=== PATIENT | female | born 1995 | race Caucasian/White ===

== ENCOUNTER 2017-08-25 01:53 | Emergency (ER) | payer OTHER ==
[2017-08-25] MEDS ORDERED: IBUPROFEN 400 MG TAB PO STA (02:34)
--- NOTE | 2017-08-25 02:42 | ED ---
Psych HPI - General Chief Complaint: Psychiatric Symptoms Stated Complaint: mental health Time Seen by Provider: 08/25/17 02:09 Source: patient, family, police Mode of arrival: ambulatory - History of Present Illness Initial Comments: This patient is a 21 year old woman brought in after she threatened suicide at her home tonight. The patient had apparently had some behavioral episodes over the course the past few days. Tonight she requested her phone and when this was not given to her she attempted to break into the medicine container. When she was stopped from this she pulled the cabinet over on top of herself. She also made statements that she is going to kill herself and/or all of the staff at the home. They bring her tonight to be evaluated. MD Complaint: suicidal ideation -: hour(s) Associated Psychiatric Symptoms: suicidal ideation History of same: Yes Improves With: none Worsens With: none Associated Symptoms: denies other symptoms - Related Data Home Medications Medication Instructions Recorded Confirmed ARIPiprazole 2 mg PO DAILY 08/25/17 08/25/17 Cholecalciferol (Vitamin D3) 2,000 unit PO DAILY 08/25/17 08/25/17 [Vitamin D3] Docusate [Colace] 100 mg PO DAILY 08/25/17 08/25/17 FLUoxetine HCL [PROzac] 10 mg PO DAILY 08/25/17 08/25/17 Fluticasone Nasal [place] [Flonase 2 spr EA NOSTRIL DAILY 08/25/17 08/25/17 Nasal [place]] Ibuprofen [Motrin] 800 mg PO BID 08/25/17 08/25/17 Lactase [Lactaid] 3,000 unit PO DAILY 08/25/17 08/25/17 Lisdexamfetamine Dimesylate 40 mg PO QAM 08/25/17 08/25/17 [Vyvanse] Omeprazole [PriLOSEC] 20 mg PO AC-BID 08/25/17 08/25/17 Ziprasidone [Geodon] 40 mg PO BID 08/25/17 08/25/17 guanFACINE HCL [guanFACINE HCL ER] 2 mg PO BID 08/25/17 08/25/17 hydrOXYzine PAMOATE [Vistaril] 25 mg PO TID PRN 08/25/17 08/25/17 Allergies Allergy/AdvReac Type Severity Reaction Status Date / Time diphenhydramine Allergy Rapid Verified 08/25/17 02:01 [From Benadryl] Heart Rate Review of Systems ROS Statement: Those systems with pertinent positive or pertinent negative responses have been documented in the HPI. ROS Other: All systems not noted in ROS Statement are negative. Respiratory: Denies: cough, dyspnea Cardiovascular: Denies: chest pain Gastrointestinal: Denies: abdominal pain, vomiting Skin: Denies: rash Neurological: Denies: headache Past Medical History Additional Past Medical History / Comment(s): ADHD, depression History of Any Multi-Drug Resistant Organisms: None Reported Past Surgical History: No Surgical Hx Reported Past Psychological History: ADD/ADHD, Anxiety, Depression Smoking Status: Never smoker Past Alcohol Use History: None Reported Past Drug Use History: None Reported General Exam Limitations: no limitations General appearance: alert, in no apparent distress Head exam: Present: atraumatic, normocephalic Eye exam: Present: normal appearance. Absent: scleral icterus, conjunctival injection ENT exam: Present: normal oropharynx Neck exam: Present: normal inspection, full ROM Respiratory exam: Present: normal lung sounds bilaterally. Absent: respiratory distress, wheezes, rales, rhonchi, stridor Cardiovascular Exam: Present: regular rate, normal rhythm, normal heart sounds. Absent: systolic murmur, diastolic murmur, rubs, gallop GI/Abdominal exam: Present: soft. Absent: distended, tenderness, guarding, rebound, mass Extremities exam: Present: normal inspection, normal capillary refill. Absent: pedal edema, calf tenderness Back exam: Present: normal inspection. Absent: CVA tenderness (R), CVA tenderness (L), vertebral tenderness Neurological exam: Present: alert Psychiatric exam: Present: normal affect. Absent: manic, homicidal ideation, suicidal ideation Skin exam: Present: warm, dry, intact, normal color. Absent: rash Course Vital Signs 08/25/17 01:57 Temperature 97.4 F L Pulse Rate 80 Respiratory 16 Rate Blood Pressure 125/69 O2 Sat by Pulse 98 Oximetry Medical Decision Making - Lab Data Lab Results 08/25/17 Range/Units 03:00 Urine Opiates Screen Not Detected (NotDetected) Ur Oxycodone Screen Not Detected (NotDetected) Urine Methadone Screen Not Detected (NotDetected) Ur Propoxyphene Screen Not Detected (NotDetected) Ur Barbiturates Screen Not Detected (NotDetected) U Tricyclic Antidepress Not Detected (NotDetected) Ur Phencyclidine Scrn Not Detected (NotDetected) Ur Amphetamines Screen Detected H (NotDetected) U Methamphetamines Scrn Not Detected (NotDetected) U Benzodiazepines Scrn Not Detected (NotDetected) Urine Cocaine Screen Not Detected (NotDetected) U Marijuana (THC) Screen Not Detected (NotDetected) Disposition Clinical Impression: Adjustment reaction Disposition: HOME SELF-CARE Condition: Fair Instructions: Mood Disorders (ED) Referrals: Michael Reddy DO [Primary Care Provider] - 1-2 days
[2017-08-25 04:47] VITALS: BP 148/72; PULSE 92; RESP 18; TEMP 98.6
== END 2017-08-25 04:45 | disposition home or self-care (01) ==
LOC: EEVIPCON 01:53 → EC 01:53 → SUPCPDRO 01:53 → EC 04:45
DX: F43.20 Adjustment disorder, unspecified (principal); F90.9 Attention-deficit hyperactivity disorder, unspecified type; F32.9 Major depressive disorder, single episode, unspecified; F41.9 Anxiety disorder, unspecified; Z79.51 Long term (current) use of inhaled steroids; Z79.1 Long term (current) use of non-steroidal anti-inflammatories (NSAID); Z79.899 Other long term (current) drug therapy; Z88.8 Allergy status to other drugs, medicaments and biological substances
CPT/HCPCS: 80306; 82075; 99284

== ENCOUNTER 2021-02-15 23:02 | Emergency (ER) | payer OTHER ==
[2021-02-16 07:23] LABS: Amphetamine Screen,Urine Not Detected (NotDetected); Barbiturate Screen,Urine Not Detected (NotDetected); Benzodiazepines Screen,Urine Not Detected (NotDetected); Cocaine Screen,Urine Not Detected (NotDetected); Methadone Screen, Urine Not Detected (NotDetected); Opiate Screen,Urine Not Detected (NotDetected); Oxycodone Screen, Urine Not Detected (NotDetected); Phencyclidine Screen,Urine Not Detected (NotDetected); Tricyclic Antidepressant,Urine Not Detected (NotDetected); Urn Cannabinoid Scrn Not Detected (NotDetected)
[2021-02-16 08:05] LABS: African American GFR (CKD) >90 (>60 ml/min/1.73 sqM); Alcohol <10 mg/dL; Anion Gap 6 mmol/L; Blood Urea Nitrogen 14 mg/dL (7-17); Calcium 9.5 mg/dL (8.4-10.2); Carbon Dioxide 25 mmol/L (22-30); Chloride 104 mmol/L (98-107); Glucose 99 mg/dL (74-99); Non-African American GFR(CKD) >90 (>60 ml/min/1.73 sqM); Potassium 4.2 mmol/L (3.5-5.1); Sodium 135 mmol/L (137-145)
[2021-02-16 08:20] LABS: Basophils # (A) 0.1 k/uL (0-0.2); Basophils % (A) 0 %; Eosinophils # (A) 0.1 k/uL (0-0.7); Eosinophils % (A) 1 %; HGB 13.5 gm/dL (11.4-16.0); Lymphocytes # (A) 2.3 k/uL (1.0-4.8); Lymphocytes % (A) 20 %; MCH 30.9 pg (25.0-35.0); MCHC 34.6 g/dL (31.0-37.0); MCV 89.4 fL (80.0-100.0); Mean Platelet Volume 6.6; Monocytes # (A) 0.4 k/uL (0-1.0); Monocytes % (A) 3 %; Neutrophils # (A) 8.4 k/uL (1.3-7.7); Neutrophils % (A) 74 %; Platelet Count 422 k/uL (150-450); RBC 4.37 m/uL (3.80-5.40); RDW 12.7 % (11.5-15.5); WBC 11.4 k/uL (3.8-10.6)
== END 2021-02-16 02:10 | disposition home or self-care (01) ==
LOC: EC 23:02
DX: F43.20 Adjustment disorder, unspecified (principal); F32.9 Major depressive disorder, single episode, unspecified
CPT/HCPCS: 99284 ×2; 36415; 80048; 85025; 81025; 80306; G0480; 80320

== ENCOUNTER 2021-02-25 19:55 | Emergency (ER) | payer OTHER ==
[2021-02-25 20:08] VITALS: RESP 18; TEMP 98.3
--- NOTE | 2021-02-25 20:23 | ED ---
General Adult HPI - General Source: patient, EMS, RN notes reviewed, old records reviewed Mode of arrival: EMS Limitations: altered mental status <Cj Khalil - Last Filed: 02/25/21 20:21> <Ludin Lee - Last Filed: 02/25/21 23:05> - General Chief complaint: Psychiatric Symptoms Stated complaint: mental health Time Seen by Provider: 02/25/21 20:08 - History of Present Illness Initial comments: 25-year-old female presenting for mental health evaluation. Patient reportedly had hallucination, stated she saw her grandfather. There was no reported choking episode where the patient attempt to hurt herself. Patient states she did see her grandfather who is [facility]. She denies any suicidal ideation. She states she doesn't remember choking herself. She currently resides [place] [facility]. Denies illicit drugs, denies alcohol, denies any physical complaints. (Cj Khalil) - Related Data Home Medications Medication Instructions Recorded Confirmed ARIPiprazole 2 mg PO DAILY 08/25/17 08/25/17 Cholecalciferol (Vitamin D3) 2,000 unit PO DAILY 08/25/17 08/25/17 [Vitamin D3] Docusate [Colace] 100 mg PO DAILY 08/25/17 08/25/17 FLUoxetine HCL [PROzac] 10 mg PO DAILY 08/25/17 08/25/17 Fluticasone Nasal [place] [Flonase 2 spr EA NOSTRIL DAILY 08/25/17 08/25/17 Nasal [place]] Ibuprofen [Motrin] 800 mg PO BID 08/25/17 08/25/17 Lactase [Lactaid] 3,000 unit PO DAILY 08/25/17 08/25/17 Lisdexamfetamine Dimesylate 40 mg PO QAM 08/25/17 08/25/17 [Vyvanse] Omeprazole [PriLOSEC] 20 mg PO AC-BID 08/25/17 08/25/17 Ziprasidone [Geodon] 40 mg PO BID 08/25/17 08/25/17 guanFACINE HCL [guanFACINE HCL ER] 2 mg PO BID 08/25/17 08/25/17 hydrOXYzine pamoate [Vistaril] 25 mg PO TID PRN 08/25/17 08/25/17 Allergies Allergy/AdvReac Type Severity Reaction Status Date / Time diphenhydramine Allergy Rapid Verified 02/25/21 20:02 [From Benadryl] Heart Rate ibuprofen Allergy Rash/Hives Verified 02/25/21 20:03 Review of Systems ROS Other: All systems not noted in ROS Statement are negative. <BushranandastacyCj Elysia - Last Filed: 02/25/21 20:21> ROS Other: All systems not noted in ROS Statement are negative. <Ludin Lee - Last Filed: 02/25/21 23:05> ROS Statement: Those systems with pertinent positive or pertinent negative responses have been documented in the HPI. Past Medical History Additional Past Medical History / Comment(s): ADHD, depression History of Any Multi-Drug Resistant Organisms: None Reported Past Surgical History: No Surgical Hx Reported Past Psychological History: ADD/ADHD, Anxiety, Depression Smoking Status: Never smoker Past Alcohol Use History: None Reported Past Drug Use History: None Reported <Cj Khalil - Last Filed: 02/25/21 20:21> General Exam Limitations: altered mental status General appearance: alert, in no apparent distress Head exam: Present: atraumatic, normocephalic Eye exam: Present: normal appearance, PERRL, EOMI ENT exam: Present: normal exam Neck exam: Present: normal inspection. Absent: tenderness, meningismus Respiratory exam: Present: normal lung sounds bilaterally. Absent: respiratory distress, wheezes Cardiovascular Exam: Present: regular rate, normal rhythm GI/Abdominal exam: Present: soft. Absent: distended, tenderness, guarding, rebound Extremities exam: Present: normal inspection, normal capillary refill. Absent: pedal edema Neurological exam: Present: alert, oriented X3, CN II-XII intact. Absent: motor sensory deficit Psychiatric exam: Present: flat affect, other (Visual and auditory hallucination) Skin exam: Present: warm, dry, intact <Cj Khalil - Last Filed: 02/25/21 20:21> Course <Cj Khalil - Last Filed: 02/25/21 20:21> Vital Signs 02/25/21 02/25/21 19:57 21:23 Temperature 98.3 F Pulse Rate 73 66 Respiratory 18 18 Rate Blood Pressure 95/65 106/70 O2 Sat by Pulse 99 100 Oximetry - Reevaluation(s) Reevaluation #1: 02/25/21 2100 Patient's care is signed out at shift change to Dr. Lee (Cj Khalil) Disposition <Cj Khalil - Last Filed: 02/25/21 20:21> Is patient prescribed a controlled substance at d/c from ED?: No <Ludin Lee - Last Filed: 02/25/21 23:05> Clinical Impression: Mood disorder Disposition: HOME SELF-CARE Condition: Fair Instructions (If sedation given, give patient instructions): Mood Disorders (ED) Referrals: Michael Reddy, [Primary Care Provider] - 1-2 days
[2021-02-25] MEDS ORDERED: QUEtiapine 50 MG TAB PO ONE (22:10)
[2021-02-25] MEDS ORDERED: OXcarbazepine 150 MG TAB PO ONE (22:10)
[2021-02-25] MEDS ORDERED: guanFACINE 1 MG TAB PO ONE (22:11)
[2021-02-25] MEDS ORDERED: LORazepam 1 MG TAB PO STA (22:11)
[2021-02-25 22:48] VITALS: BP 106/70; PULSE 66
== END 2021-02-25 23:15 | disposition home or self-care (01) ==
LOC: EC 19:55
DX: F39 Unspecified mood [affective] disorder (principal); F90.9 Attention-deficit hyperactivity disorder, unspecified type; F41.9 Anxiety disorder, unspecified; F32.9 Major depressive disorder, single episode, unspecified; Z79.51 Long term (current) use of inhaled steroids; Z79.899 Other long term (current) drug therapy; Z88.6 Allergy status to analgesic agent; Z88.8 Allergy status to other drugs, medicaments and biological substances
CPT/HCPCS: 82075; 99285

== ENCOUNTER 2022-12-15 19:28 | Emergency (ER) | payer OTHER ==
[2022-12-15 19:41] VITALS: RESP 18; TEMP 97.9
--- NOTE | 2022-12-15 20:09 | ED ---
Psych HPI - General Chief Complaint: Psychiatric Symptoms Stated Complaint: Mental Health Time Seen by Provider: 12/15/22 19:30 Source: patient, EMS Mode of arrival: EMS - History of Present Illness Initial Comments: 27-year-old female past history of ADHD and depression presents to the emergency department reporting aggressive behavior. [facility] resides in a [facility]. States that the workers at the [facility] are making her angry and therefore she called police. It felt as if she was confirmed then if she stayed in the house any longer. She was brought to the emergency Department for de-escalation. She currently denies any suicidal ideations. No drug or alcohol use. Denies concern for . No other alleviating, precipitating or modifying factors - Related Data Home Medications Medication Instructions Recorded Confirmed ARIPiprazole 2 mg PO DAILY 08/25/17 08/25/17 Cholecalciferol (Vitamin D3) 2,000 unit PO DAILY 08/25/17 08/25/17 [Vitamin D3] Docusate [Colace] 100 mg PO DAILY 08/25/17 08/25/17 FLUoxetine HCL [PROzac] 10 mg PO DAILY 08/25/17 08/25/17 Fluticasone Nasal [place] [Flonase 2 spr EA NOSTRIL DAILY 08/25/17 08/25/17 Nasal [place]] Ibuprofen [Motrin] 800 mg PO BID 08/25/17 08/25/17 Lactase [Lactaid] 3,000 unit PO DAILY 08/25/17 08/25/17 Lisdexamfetamine Dimesylate 40 mg PO QAM 08/25/17 08/25/17 [Vyvanse] Omeprazole [PriLOSEC] 20 mg PO AC-BID 08/25/17 08/25/17 Ziprasidone [Geodon] 40 mg PO BID 08/25/17 08/25/17 guanFACINE HCL [guanFACINE HCL ER] 2 mg PO BID 08/25/17 08/25/17 hydrOXYzine pamoate [Vistaril] 25 mg PO TID PRN 08/25/17 08/25/17 Allergies Allergy/AdvReac Type Severity Reaction Status Date / Time diphenhydramine Allergy Rapid Verified 02/25/21 20:02 [From Benadryl] Heart Rate ibuprofen Allergy Rash/Hives Verified 02/25/21 20:03 Review of Systems ROS Statement: Those systems with pertinent positive or pertinent negative responses have been documented in the HPI. ROS Other: All systems not noted in ROS Statement are negative. Past Medical History Additional Past Medical History / Comment(s): ADHD, depression History of Any Multi-Drug Resistant Organisms: None Reported Past Surgical History: No Surgical Hx Reported Past Psychological History: ADD/ADHD, Anxiety, Depression Smoking Status: Never smoker Past Alcohol Use History: None Reported Past Drug Use History: None Reported General Exam General appearance: alert, in no apparent distress Head exam: Present: atraumatic, normocephalic, normal inspection Eye exam: Present: normal appearance, PERRL, EOMI. Absent: scleral icterus, conjunctival injection, periorbital swelling ENT exam: Present: normal exam, mucous membranes moist Neck exam: Present: normal inspection. Absent: tenderness, meningismus, lymphadenopathy Respiratory exam: Present: normal lung sounds bilaterally. Absent: respiratory distress, wheezes, rales, rhonchi, stridor Cardiovascular Exam: Present: regular rate, normal rhythm, normal heart sounds. Absent: systolic murmur, diastolic murmur, rubs, gallop, clicks GI/Abdominal exam: Present: soft, normal bowel sounds. Absent: distended, tenderness, guarding, rebound, rigid Extremities exam: Present: normal inspection, full ROM, normal capillary refill. Absent: tenderness, pedal edema, joint swelling, calf tenderness Back exam: Present: normal inspection Neurological exam: Present: alert, oriented X3, CN II-XII intact Psychiatric exam: Present: normal affect, normal mood Skin exam: Present: warm, dry, intact, normal color. Absent: rash Course Vital Signs 12/15/22 12/15/22 19:38 20:22 Temperature 97.9 F Pulse Rate 96 100 Respiratory 18 18 Rate Blood Pressure 135/80 148/86 O2 Sat by Pulse 99 99 Oximetry Medical Decision Making - Medical Decision Making Was pt. sent in by a medical professional or institution? [facility] facility Did you speak to anyone other than the patient for history? ems Did you review nursing and triage notes? yes and i agree Were old charts reviewed? yes, previous hospital admissions were viewed Differential Diagnosis? aggressive outburst, bipolar, schizophrenia, SI, HI, drug abuse EKG interpreted by me (3pts min.)? no X-rays interpreted by me (1pt min.)? no CT interpreted by me (1pt min.)? no U/S interpreted by me (1pt. min.)? no What testing was considered but not performed? (CT, X-rays, U/S, labs)? Why? none What meds were considered but not given? Why? none Did you discuss the management of the patient with other professionals? EPS nurse Did you reconcile home meds? no Was smoking cessation discussed for >3mins.? no Was critical care preformed (if so, how long)? no Were there social determinants of health that impacted care today? How? (Homelessness, low income, unemployed, alcoholism, drug addiction, transportation, low edu. Level, literacy, decrease access to med. care, detention, rehab)? low literacy - patient frequently comes to hospital as she resides in [facility] and is easily disturbed by staff workers and other residents Was there de-escalation of care discussed even if they declined? (Discuss DNR or withdrawal of care, Hospice)? no What co-morbidities impacted this encounter? (DM, HTN, Smoking, COPD, CAD, Cancer, CVA, Hep., AIDS, mental health diagnosis, sleep apnea, morbid obesity)? ADHS, depression Was patient admitted / discharged? Upon arrival patient was placed in room 14. There are history and physical exam is performed. She is not suicidal or homicidal. Does not meet criteria for inpatient placement. She will be discharged in the care of her sister was she was from the night and will be driven back to the [facility] in the morning. All parties are agreeable with the plan and the patient was discharged home in stable condition Undiagnosed new problem with uncertain prognosis? yes Drug Therapy requiring intensive monitoring for toxicity (Heparin, Nitro, Insulin, Cardizem)? no Were any procedures done? no Diagnosis/symptom? acute aggressive behavior Acute, or Chronic, or Acute on Chronic? acute on chronic Uncomplicated (without systemic symptoms) or Complicated (systemic symptoms)? uncomplicated Side effects of treatment? none Exacerbation, Progression, or Severe Exacerbation] yes Poses a threat to life or bodily function? no Disposition Clinical Impression: Aggressive behavior Disposition: HOME SELF-CARE Condition: Stable Instructions (If sedation given, give patient instructions): Mood Disorders (ED) Is patient prescribed a controlled substance at d/c from ED?: No Referrals: None,Stated [Primary Care Provider] - 1-2 days Time of Disposition: 20:11
[2022-12-15 20:25] VITALS: BP 148/86; PULSE 100
== END 2022-12-15 20:24 | disposition home or self-care (01) ==
LOC: EC 19:28
DX: R45.6 Violent behavior (principal); F41.9 Anxiety disorder, unspecified; F32.A Depression, unspecified; Z88.8 Allergy status to other drugs, medicaments and biological substances